=== PATIENT | female | born 1995 | race Caucasian/White ===

== ENCOUNTER 2024-09-08 10:57 | Emergency (ER) | payer BC ==
[2024-09-08] MEDS: Ketorolac 30 MG/ML SDV IM ONE (12:41)
== END 2024-09-08 13:00 | disposition home or self-care (01) ==
LOC: FB.ED 10:57
DX: S60.211A Contusion of right wrist, initial encounter (principal); S80.01XA Contusion of right knee, initial encounter; Z88.0 Allergy status to penicillin; Z79.899 Other long term (current) drug therapy; F17.210 Nicotine dependence, cigarettes, uncomplicated; Y04.0XXA Assault by unarmed brawl or fight, initial encounter
CPT/HCPCS: 73110; 73502; 73560; 96372; 99283; J1885